=== PATIENT | male | born 1980 | race Caucasian/White ===

== ENCOUNTER 2016-12-27 10:03 | Emergency (ER) | payer OTHER ==
[~2016-12-27] VITALS: Ht 172.7 cm; Wt 81.6 kg
[2016-12-27] MEDS ORDERED: IBUPROFEN800 M1 PO (10:29)
[2016-12-27] MEDS ORDERED: PROPRANOLOL HC120 M1 PO (10:29)
[2016-12-27] MEDS ORDERED: CLONAZEPAM0.5 M2 PO (10:29)
[2016-12-27] MEDS ORDERED: DOXYCYCLINE HY100 M2 PO (10:29)
[2016-12-27] MEDS ORDERED: IMITREX50 M1 PO (10:30)
[2016-12-27] MEDS ORDERED: ALPRAZOLAM0.5 M4 PO (10:30)
[2016-12-27] MEDS ORDERED: RABEPRAZOLE SOD20 M1 PO (10:31)
[2016-12-27] MEDS ORDERED: TRAZODONE HCL50 M1 PO (10:31)
[2016-12-27] MEDS ORDERED: ZOLPIDEM TARTRA10 M1 PO (10:31)
[2016-12-27] MEDS ORDERED: NASONEX17 GM NASB (10:32)
[2016-12-27] MEDS ORDERED: AMOX-CLAV 875-1 EACH PO (10:32)
[2016-12-27] MEDS ORDERED: MOVANTIK25 M1 PO (10:32)
[2016-12-27] MEDS ORDERED: TESTOSTERO200 MG/1 M IM (10:33)
[2016-12-27] MEDS ORDERED: DEXTROAMP-AMPHE30 MG PO (10:37)
[2016-12-27] MEDS ORDERED: BACLOFEN10 M1 PO (10:38)
[2016-12-27] MEDS ORDERED: OXYCODONE-ACET1 EAC1 PO (10:39)
[2016-12-27] MEDS ORDERED: CYANOCOBAL1000 MCG/2 IM (10:40)
--- NOTE | 2016-12-27 10:58 | ED HAND/WRIST INJURY COMPLAINT ---
History of Present Illness General Chief Complaint: Skin Rash/ Abcess Stated Complaint: abcess to thumb Source: patient Exam Limitations: no limitations Vital Signs & Intake/Output Vital Signs & Intake/Output Vital Signs Date Time Temp Pulse Resp B/P Pulse O2 O2 Flow FiO2 Ox Delivery Rate 12/27 1426 98.2 86 16 128/74 98 Room Air 12/27 1232 97.1 95 16 121/73 95 Room Air 12/27 1011 98.8 130 20 133/96 96 Room Air Allergies Coded Allergies: NO KNOWN ALLERGIES (01/19/12) Reconcile Medications Alprazolam 0.5 MG TABLET 1 TAB PO BID ANXIETY (Reported) Amoxicillin/Clavulanate Potass (Amox-Clav 875-125 MG Tablet) 875 MG-125 MG TABLET 1 TAB PO BID ANTIBIOTIC, INFECTION (Reported) Baclofen 10 MG TABLET 1 TAB PO TID MUSCLE SPASMS (Reported) Clonazepam 0.5 MG TABLET 1 TAB PO BID ANXIETY (Reported) Cyanocobalamin (Vitamin B-12) (Cyanocobalamin Injection) 1,000 MCG/ML VIAL 1 ML IM Q30D SUPPLEMENT (Reported) Dextroamphetamine/Amphetamine (Dextroamp-Amphetamin 30 MG Tab) 30 MG TABLET 1 TAB PO TID UNKNOWN (Reported) Ibuprofen 800 MG TABLET 1 TAB PO BID PAIN (Reported) Mometasone Furoate (Nasonex) 50 MCG SPRAY.PUMP 2 SPRAY NASB DAILY ALLERGIES ( Reported) Naloxegol Oxalate (Movantik) 25 MG TABLET 1 TAB PO DAILY UNKNOWN (Reported) Oxycodone HCl/Acetaminophen (Oxycodone-Acetaminophen 10-325) 10 MG-325 MG TABLET 1 TAB PO Q4P PRN PAIN (Reported) Propranolol HCl (Propranolol HCl ER) 120 MG CAP.SA.24H 1 CAP PO DAILY HEART ( Reported) Rabeprazole Sodium 20 MG TABLET.DR 1 TAB PO DAILY UNKNOWN (Reported) Sumatriptan Succinate (Imitrex) 50 MG TABLET 1 TAB PO DAILY PRN HEADACHE ( Reported) Testosterone Cypionate 200 MG/ML VIAL 1 ML IM Q2W UNKNOWN (Reported) Trazodone HCl 50 MG TABLET 1 TAB PO QPM SLEEP (Reported) Zolpidem Tartrate 10 MG TABLET 1 TAB PO QPM SLEEP (Reported) Triage Note: PT TO ED C/O ABSCESS TO LEFT THUMB. PT WAS STUNG BY A LION FISH 2 WEEKS AGO ON VACATION. PT WAS SEEN IN ANOTHER ER ON 12/25, PT STATES THEY TOOK X-RAYS AND OPENED UP HIS THUMB. PT IS ON PO ABX. STATES PAIN IS WORSE AND FEELS LIKE HIS THUMB IS NOT GETTING ANY BETTER. AFEBRILE. Triage Nurses Notes Reviewed? yes Duration: week(s):, constant, getting worse Timing: recent history Injury Environment: home Severity: severe Pain/Injury Location: Left: 1st finger. No Modifying Factors: none HPI: 36-year-old male comes into emergency room with complaints of pain and swelling and redness to his left thumb. Patient was on [place] and [place] by a lion fish. Patient reports that he has associated redness and swelling. He went to the emergency room once already and had a drained and was placed on doxycycline. He then saw his primary care doctor who told him that he should be on Augmentin. Patient complains of severe sharp throbbing pain that radiates up his arm. Continuous. (ELZA LÓPEZ) Past History Travel History Traveled to [place] past 21 day No Medical History Any Pertinent Medical History? see below for history Neurological: multiple sclerosis Surgical History Surgical History: non-contributory Psychosocial History What is your primary language Setswana Tobacco Use: Never used ETOH Use: denies use Illicit Drug Use: denies illicit drug use Family History Hx Contributory? No (ELZA LÓPEZ) Review of Systems Review of Systems Constitutional: Reports: no symptoms. EENTM: Reports: no symptoms. Respiratory: Reports: no symptoms. Cardiovascular: Reports: no symptoms. GI: Reports: no symptoms. Genitourinary: Reports: no symptoms. Musculoskeletal: Reports: see HPI. Skin: Reports: see HPI. Neurological/Psychological: Reports: no symptoms. Hematologic/Endocrine: Reports: no symptoms. Immunologic/Allergic: Reports: no symptoms. All Other Systems: Reviewed and Negative (ELZA LÓPEZ) Physical Exam Physical Exam General Appearance: well developed/nourished, mild distress Head: atraumatic Eyes: Bilateral: normal appearance. Ears, Nose, Throat: normal ENT inspection, hearing grossly normal Neck: normal inspection Cardiovascular/Respiratory: no respiratory distress Back: normal inspection Hand Left: swelling, tender, 1st finger Hand Right: normal inspection Neurologic/Tendon: normal motor functions, responds to pain Skin: intact, normal color, warm/dry Lymphatic: no anterior cervical jose manuel (ELZA LÓPEZ) Progress Differential Diagnosis: abscess, cellulitis, contusion, septic arthritis, tenosynovitis, soft tissue foreign body Plan of Care: Orders Procedure Date/time Status BLOOD CULTURE 12/27 1056 Active C-REACTIVE PROTEIN 12/27 1056 Complete COMPREHENSIVE METABOLIC PANEL 12/27 1056 Complete CBC WITHOUT DIFFERENTIAL 12/27 1056 Complete Laboratory Tests 12/27/16 1113: Anion Gap 10, Estimated GFR > 60, BUN/Creatinine Ratio 15.0, Glucose 101 H, Calcium 9.7, Total Bilirubin 0.7, AST 113 H, ALT 80 H, Alkaline Phosphatase 81 , C-Reactive Prot, Quant 4.9 H, Total Protein 6.6, Albumin 4.0, Globulin 2.6, Albumin/Globulin Ratio 1.5, CBC w Diff MAN DIFF ORDERED, RBC 5.24, MCV 83.4, MCH 28.6, RDW 13.0, MPV 7.8, Gran % 86.3 H, Lymphocytes % 10.8 L, Monocytes % 2.5, Eosinophils % 0.4, Basophils % 0 L, Absolute Granulocytes 11.8 H, Absolute Lymphocytes 1.5, Absolute Monocytes 0.3, Absolute Eosinophils 0.1, Absolute Basophils 0, Platelet Estimate ADEQUATE, Normocytic RBCs VERIFIED, Normochromic RBCs VERIFIED, PUBS MCHC 34.2 Microbiology 12/27 1120 BLOOD: Blood Culture - RECD 12/27 110 BLOOD: Blood Culture - RECD Diagnostic Imaging: Viewed by Me: Radiology Read. Discussed w/RAD: Radiology Read. Radiology Impression: SERVICE DATE: 12/27/16 EXAM TYPE: RAD - XRY-FINGERS , LEFT EXAMINATION: XR FINGER, LEFT CLINICAL INFORMATION: Pain and swelling. Evaluate for osteomyelitis of thumb. COMPARISON: None TECHNIQUE: Left thumb, 3 views FINDINGS: Bones have normal shape, density and alignment. No osseous erosion, periostitis or fracture. No significant soft tissue swelling, soft tissue emphysema or radiopaque foreign body. IMPRESSION: No evidence of osteolysis. No significant radiographic findings in the thumb. (ELZA LÓPEZ) Departure Departure Disposition: HOME OR SELF CARE Condition: Stable Clinical Impression Primary Impression: Cellulitis of finger Referrals: AYAN MATTSON,MARIANNE (PCP/Family) ARIELA MATTSON,PAUL Lamas Additional Instructions: Continue taking Augmentin. Follow-up with Dr. michel in office. Keep covered with bacitracin and dressing. Return if any concerns worsening symptoms. Departure Forms: Customer Survey General Discharge Information Comments 12/27/2016 2:50:[address] Laguerre did a debridement here in the emergency room. Patient will continue Augmentin. Patient had a culture done from [facility] in [place]. Currently its mixed jl with strep viridans and coagulase negative strep. Patient is nontoxic-appearing. Patient is in no apparent distress. Patient feels better after meds. Patient given dose of IV antibiotics. Return if any other concerns. Patient will follow up with plastic surgery in the office. (ELZA LÓPEZ) PA/CRANE OPERATOR CAB Co-Sign Statement Statement: ED Attending supervision documentation- [] I saw and evaluated the patient. I have also reviewed all the pertinent lab results and diagnostic results. I agree with the findings and the plan of care as documented in the PA's/CRANE OPERATOR CAB's documentation. x I have reviewed the ED Record and agree with the PA's/CRANE OPERATOR CAB's documentation. [] Additions or exceptions (if any) to the PAs/CRANE OPERATOR CAB's note and plan are summarized below: [] (AMITA MATTSON,FRANCISCO)
[2016-12-27 11:23] LABS: ABSOLUTE BASOPHIL COUNT 0 /CUMM (0.0-0.2); ABSOLUTE EOSINOPHIL COUNT 0.1 /CUMM (0.0-0.7); ABSOLUTE GRANULOCYTE CT 11.8 /CUMM (1.4-6.5); ABSOLUTE LYMPH COUNT 1.5 /CUMM (1.2-3.4); ABSOLUTE MONOCYTE COUNT 0.3 /CUMM (0.10-0.60); BASOPHIL % 0 % (0.0-2.0); EOSINOPHIL % 0.4 % (0-5); GRANULOCYTE % 86.3 % (42.2-75.2); HEMATOCRIT 43.7 % (42-52); MEAN CORPUSCULAR HGB 28.6 PG (27.0-31.0); MEAN CORPUSCULAR HGB CONC 34.2 G/DL (33.0-37.0); MEAN CORPUSCULAR VOLUME 83.4 FL (80.0-94.0); MEAN PLATELET VOLUME 7.8 FL (7.4-10.4); PLATELET COUNT 344 /CUMM (130-400); RED BLOOD CELL CT 5.24 /CUMM (4.70-6.10); WHITE BLOOD CELL COUNT 13.7 /CUMM (4.8-10.8)
--- NOTE | 2016-12-27 11:48 | RADIOLOGY REPORT ---
EXAMINATION: XR FINGER, LEFT CLINICAL INFORMATION: Pain and swelling. Evaluate for osteomyelitis of thumb. COMPARISON: None TECHNIQUE: Left thumb, 3 views FINDINGS: Bones have normal shape, density and alignment. No osseous erosion, periostitis or fracture. No significant soft tissue swelling, soft tissue emphysema or radiopaque foreign body. IMPRESSION: No evidence of osteolysis. No significant radiographic findings in the thumb.
[2016-12-27 14:26] VITALS: BP 128/74
--- NOTE | 2016-12-27 14:27 | Cons- Plastic Surgery ---
General Information and HPI Consulting Request Date of Consult: 12/27/16 Requested By: nataliya kauffman Reason for Consult: Cellulitis and abscess left thumb Source of Information: patient, family History of Present Illness: Patient was vacationing and witnessed A Fish spine injury to the left thumb. He had resulting pain redness and was treated with a course of antibiotics without improvement. He presents now with similar complaints of pain and stiffness sensation left thumb retrograde referral feels otherwise well Allergies/Medications Allergies: Coded Allergies: NO KNOWN ALLERGIES (01/19/12) Home Med List: Alprazolam 0.5 MG TABLET 1 TAB PO BID ANXIETY (Reported) Amoxicillin/Clavulanate Potass (Amox-Clav 875-125 MG Tablet) 875 MG-125 MG TABLET 1 TAB PO BID ANTIBIOTIC, INFECTION (Reported) Baclofen 10 MG TABLET 1 TAB PO TID MUSCLE SPASMS (Reported) Clonazepam 0.5 MG TABLET 1 TAB PO BID ANXIETY (Reported) Cyanocobalamin (Vitamin B-12) (Cyanocobalamin Injection) 1,000 MCG/ML VIAL 1 ML IM Q30D SUPPLEMENT (Reported) Dextroamphetamine/Amphetamine (Dextroamp-Amphetamin 30 MG Tab) 30 MG TABLET 1 TAB PO TID UNKNOWN (Reported) Ibuprofen 800 MG TABLET 1 TAB PO BID PAIN (Reported) Mometasone Furoate (Nasonex) 50 MCG SPRAY.PUMP 2 SPRAY NASB DAILY ALLERGIES ( Reported) Naloxegol Oxalate (Movantik) 25 MG TABLET 1 TAB PO DAILY UNKNOWN (Reported) Oxycodone HCl/Acetaminophen (Oxycodone-Acetaminophen 10-325) 10 MG-325 MG TABLET 1 TAB PO Q4P PRN PAIN (Reported) Propranolol HCl (Propranolol HCl ER) 120 MG CAP.SA.24H 1 CAP PO DAILY HEART ( Reported) Rabeprazole Sodium 20 MG TABLET.DR 1 TAB PO DAILY UNKNOWN (Reported) Sumatriptan Succinate (Imitrex) 50 MG TABLET 1 TAB PO DAILY PRN HEADACHE ( Reported) Testosterone Cypionate 200 MG/ML VIAL 1 ML IM Q2W UNKNOWN (Reported) Trazodone HCl 50 MG TABLET 1 TAB PO QPM SLEEP (Reported) Zolpidem Tartrate 10 MG TABLET 1 TAB PO QPM SLEEP (Reported) Past History Medical History Neurological: multiple sclerosis Surgical History Pertinent Surgical History: non-contributory Psychosocial History ETOH Use: denies use Illicit Drug Use: denies illicit drug use Review of Systems Review of Systems: All other systems negative Exam & Diagnostic Data Vital Signs and I&O Vital Signs Date Time Temp Pulse Resp B/P Pulse O2 O2 Flow FiO2 Ox Delivery Rate 12/27 1232 97.1 95 16 121/73 95 Room Air 12/27 1011 98.8 130 20 133/96 96 Room Air Intake & Output 12/27 1600 12/27 0800 12/27 0000 12/26 1600 12/26 0800 12/26 0000 Intake Total 0 Output Total Balance 0 Intake, Oral 0 Patient 180 lb Weight Physical Exam: Appears somewhat somnolent takes daily narcotics for remote back injury and MS. Interactive and appropriate. Physical exam absent neuro exam shows the following abnormalities left thumb has erythema proximal to the IP joint without proximal extension has an open wound with necrotic tissue on the volar tip nail bed and plate intact range of motion limited secondary to edema no proximal extension i.e. lymphangitis present. White blood count elevated at 13,000 hand x-ray negative Assessment/Plan Assessment/Plan Abscess cellulitis left thumb secondary to fish spine injury. Request for culture report [facility] a few days ago show staph and strep. Procedure note the patient agreed to an I&D and debridement. A digital block was placed soft tissues were debrided back to healthy pink base without tracking nor exposed distal phalanx. No foreign bodies identified. No contents to culture. Agree with continuing Augmentin with close follow-up as explained to the patient and his who is a physical therapist. Local wound care instructions given return to the emergency room if erythema spreads or change in symptoms. Consult Acknowledgment - Thank you for your consult request.
== END 2016-12-27 14:27 ==
LOC: ERH 10:03
PROVIDERS: Physician Assistant Medical
DX: L03.012 Cellulitis of left finger (principal)
CPT/HCPCS: 73140-LT; 87040; 96365; 96375; J1885